=== PATIENT | male | born 1990 | race Caucasian/White ===

== ENCOUNTER 2017-06-24 19:57 | Emergency (ER) | payer OTHER, SELFPAY ==
[2017-06-24 19:58] VITALS: BP 113/89; PULSE 113; RESP 18; TEMP 36.8; O2SAT 98; BMI 26.4
--- NOTE | 2017-06-24 20:20 | RAD_ITS ---
STUDY: X-RAY - LEFT ANKLE REASON FOR EXAM: Male, 27 years old. Ankle injury. TECHNIQUE: 3 view(s) of the ankle. COMPARISON: None. FINDINGS: Normal visualized distal tibia and fibula. Normal medial and lateral malleoli. Normal tibiotalar articulation and ankle mortise. Normal visualized talus and calcaneus. The visualized subtalar, talonavicular, calcaneocuboid and tarsal articulations are normal. Lateral soft tissue swelling is present with mild ankle edema. RAD/Ankle min 3 Views IMPRESSION: Lateral soft tissue swelling and mild ankle edema with no evidence of acute fracture. Electronically Signed: Shan Mora DO at 20:38 EST , Service support ,
--- NOTE | 2017-06-24 21:03 | ED.VISSUMM ---
- ER Visit Summary Date of Service: 06/24/17 Chief Complaint: Left ankle pain History of Present Illness: The patient is a 27 M with no primary care physician. He reports he was playing volleyball today and had a forced inversion injury of his left ankle. He has pain is 10 out of 10 with walking 1 out of 10 at rest. He denies any other injuries. Physical Examination: Vitals: Stable. Afebrile. Neck: No vertebral tenderness. Full ROM without difficulty. Cleared by NEXUS criteria. Back: No vertebral tenderness. General: A&O x 3. NAD. Cardiovascular exam: Regular rate and rhythm, no murmur, rub or gallop. Respiratory exam: Chest nontender. No crepitus. Clear to auscultation bilaterally. No wheezes or stridor. Abdominal exam: Soft, nontender, nondistended, normal bowel sounds. No pain in RUQ or LUQ specifically. No peritoneal signs. Extremity: Tenderness palpation over left lateral malleolus. There is soft tissue swelling present. No pain over the medial malleolus. No pain over the base the fifth metatarsal. No pain over the proximal fibula. He is neurovascular intact distal to this. Test Results: Left ankle x-ray is negative. Emergency Department Course and Treatment: Patient is treated with naproxen and placed on crutches. He is also placed in an Aircast. Treatment Plan: He will be discharged instructions to follow-up with Dr. Tyler in 1 week if not improving. Placed on naproxen at home. Disposition: To home in improved and stable condition. Impression: 1. Left ankle sprain. This note was generated with [employer] dictation software. It may contain incorrect words, spelling, and punctuation that were not noted in review of the chart prior to signing ED Disposition - Plan for ED Patient: Disposition: Home or Assisted Living Chief Complaint: Lower Extremity Injury Instructions: ED Sprain Ankle W X Ray Prescriptions: Naproxen [Naprosyn] 500 mg PO BID PRN #20 tablet Referrals: Santiago Tyler DPM [STAFF PHYSICIAN] - 10-14 Days if not better
[2017-06-24] MEDS: Naproxen 250 MG Tablet 500 MG PO (21:24)
[2017-06-24 21:48] VITALS: BP 128/75; PULSE 71; RESP 18; O2SAT 96
== END 2017-06-24 21:49 | disposition home or self-care (01) ==
PROVIDERS: Emergency Provider Emergency Medicine
DX: S93.402A Sprain of unspecified ligament of left ankle, initial encounter (principal); X50.1XXA Overexertion from prolonged static or awkward postures, initial encounter; Y93.68 Activity, volleyball (beach) (court); Y92.9 Unspecified place or not applicable
CPT/HCPCS: 73610; 99283

== ENCOUNTER → 2017-07-12 08:29 | Outpatient (CLI) | payer OTHER, SELFPAY ==
--- NOTE | 2017-07-12 08:33 | RAD_ITS ---
STUDY: X-RAY - LEFT TIBIA AND FIBULA REASON FOR EXAM: Male, 27 years old. Foot injury 2 weeks ago. Pain. TECHNIQUE: 4 view(s) of the tibia and fibula were obtained. COMPARISON: None. FINDINGS: Normal visualized tibia. Normal visualized fibula. Incidentally noted is a nondisplaced fracture of the base of the fifth metatarsal. The soft tissue structures are unremarkable. RAD/Tibia & Fibula 2 Views IMPRESSION: Nondisplaced fifth metatarsal fracture. Electronically Signed: Naveen Barrow MD at 17:14 EDT , Service support ,
--- NOTE | 2017-07-12 08:33 | RAD_ITS ---
STUDY: X-RAY - LEFT FOOT CLINICAL: Male, 27 years old. Injury 2 weeks ago. Pain. TECHNIQUE: 3 view(s) of the foot. COMPARISON: None. FINDINGS: Normal talus, calcaneus, and tarsal bones. Normal visualized subtalar, talonavicular, calcaneocuboid, tarsal and tarsometatarsal articulations. There is a nondisplaced oblique fracture of the base of the fifth metatarsal. Normal metatarsophalangeal joint of the great toe. Normal tibial and fibular sesamoid bones. Normal interphalangeal joint of the great toe. Normal phalanges of the great toe. Normal second through fifth metatarsophalangeal joints. Normal interphalangeal joints and phalanges of the lesser toes. The soft tissue structures are unremarkable. RAD/Foot min 3 Views IMPRESSION: Base of fifth metatarsal fracture as described. Electronically Signed: Naveen Barrow MD at 17:13 EDT , Service support ,
== END ==
PROVIDERS: Visit Provider Orthopaedic Surgery
DX: M89.8X6 Other specified disorders of bone, lower leg (principal); M79.672 Pain in left foot
CPT/HCPCS: 73590; 73630

== ENCOUNTER → 2017-07-23 12:13 | Outpatient (CLI) | payer OTHER, SELFPAY ==
--- NOTE | 2017-07-23 12:16 | MRI_ITS ---
STUDY: MRI LEFT MIDFOOT REASON FOR EXAM: Left foot pain status post injury with fifth metatarsal fracture. TECHNIQUE: Standardized fat and water weighted pulse sequences were obtained in all 3 orthogonal planes. COMPARISON: Radiographs 07/12/2017. FINDINGS: Normal talonavicular articulation. Normal calcaneocuboid articulation. Normal navicular-cuneiform articulations. Normal intercuneiform articulations. There is a bone contusion of the distal cuboid (inversion recovery sagittal images 17-19). Normal first tarsometatarsal articulation. There is a mild sprain of Lisfranc ligament (T2 axial series 6 image 9; ankle inversion recovery axial series 8 image 11). Normal second and third tarsometatarsal articulations. Normal cuboid fourth and cuboid fifth tarsometatarsal articulation. There is a nondisplaced fracture of the fifth metatarsal base (T2 axial series 6 images 18, 19). Normal tibialis anterior tendon. Normal extensor hallucis longus tendon. Normal extensor digitorum longus tendons. Normal peroneus longus tendon and distal insertion. Normal peroneus brevis tendon and distal insertion. Normal intrinsic muscles of the mid and forefoot region. Normal extensor digitorum brevis muscle. There is edema in the dorsal lateral subcutis adipose space. MRI/Lower Ext/No Jt/w/o IMPRESSION: Nondisplaced fracture of the fifth metatarsal base. Mild sprain of Lisfranc ligament. Bone contusion of the distal cuboid. No demonstrated tendon injury. Electronically Signed: Bartolome Carrillo MD at 14:42 EDT Tel , Service support ,
--- NOTE | 2017-07-23 12:16 | MRI_ITS ---
STUDY: MRI LEFT ANKLE WITHOUT CONTRAST REASON FOR EXAM: Left foot and anterior left ankle pain status post injury. TECHNIQUE: Standardized fat and water weighted pulse sequences were obtained in all 3 orthogonal planes. COMPARISON: Radiographs 06/24/2017. FINDINGS: There is edema in the subcutis adipose space. Normal posterior tibialis tendon. Normal flexor digitorum longus tendon. Normal flexor hallucis longus tendon. Normal peroneus longus and brevis tendons. Normal tibialis anterior tendon. Normal extensor hallucis longus tendon. Normal extensor digitorum longus tendons. Normal Achilles tendon and teno-osseous insertion. Normal plantar fascia. Normal plantar calcaneal tubercles. Normal intrinsic muscles of the rearfoot. Normal distal tibiofibular syndesmotic ligamentous complex. There is a sprain of the anterior talofibular ligament (T2 axial image 23). Normal calcaneofibular and posterior talofibular ligaments. Normal subtalar ligaments and sinus tarsi. There is a sprain of the deltoid ligament (T2 coronal image 15). Normal plantar calcaneonavicular (spring) ligament. Normal tibiotalar articulation. Normal talar dome. Normal subtalar articulations. Normal talonavicular articulation. Normal calcaneocuboid articulation. Normal navicular-cuneiform articulations. There are bone contusions of the medial malleolus, medial body/neck of the talus and the sustentaculum luna (T2 coronal images 12-19). There is a bone contusion of the distal cuboid (inversion recovery sagittal images 13-15). There is a nondisplaced fracture of the fifth metatarsal base (inversion recovery series 8 images 19, 20). There is a small bone contusion of the lateral malleolus (T2 coronal image 12). MRI/Lower Ext Joint Only (Routine) IMPRESSION: Anterior talofibular ligament sprain. Deltoid ligament sprain. Bone contusions of the medial and lateral malleoli, talus, sustentaculum luna and cuboid. Fracture of the fifth metatarsal base. No demonstrated tendon injury. Electronically Signed: Bartolome Carrillo MD at 14:43 EDT Tel , Service support ,
== END ==
PROVIDERS: Visit Provider Orthopaedic Surgery
DX: S92.352A Displaced fracture of fifth metatarsal bone, left foot, initial encounter for closed fracture (principal); S86.219A Strain of muscle(s) and tendon(s) of anterior muscle group at lower leg level, unspecified leg, initial encounter; X58.XXXA Exposure to other specified factors, initial encounter
CPT/HCPCS: 73718; 73721

== ENCOUNTER 2017-11-28 18:30 | Outpatient (RCR) | payer OTHER, SELFPAY ==
--- NOTE | 2017-07-18 18:51 | HP.PTEVAL_ITS ---
Patient's Visit Information MAK LANDAVERDE is a 27 year old M referred to Physical Therapy by DO JOSUE Odonnell with a diagnosis of L ankle sprain and avulsion Fx. Date of Evaluation: 07/18/17 Physical Therapist: Waqas Swan, PT, - Visit Plan Frequency: 2x /Week Duration: 4-6 Weeks Plan: L ankle stretching and strengthening, balance and proprio, core, nustep, and HEP - Subjective Subjective: DOI: 06/24/17. Pt reports he was playing VB when he landed on his L ankle resulting in severe pain. Pt reports he had xrays which revealed a fracture to the 5th metatarsal and a sprain of the L ankle. Pt reports he is getting an MRI performed on his L LE next week in order to try and identify why he has such bad L LE pain. 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 No T or N at this time. 0/10 at rest, 2/10 pain at worst - Pain L foot/ankle Pain Intensity (Out of 10): 0 Pain Intensity Range: 2 - Objective Neuro: B LE sensation is WNL to light touch. B pat reflex= 2/3. Girth at malleouls line: R ankle 27 cm, L ankle 30 cm. ankle ROM: R ankle DF= 7, PF= 60 ; L ankle PF= 45, DF= -7 degrees. Ankle MMT: R ankle 5/5, L ankle 2/5 and painful - Goals Goal 1:: Decrease L ankle pain x 50% to aid with IADL's Goal Time Frame: 4-6 Weeks Goal 2:: Increase L ankle strength x 1 grade to aid with stair negotiation Goal Time Frame: 4-6 Weeks Goal 3:: Increase L ankle DF and PF ROM x 10 degrees ea to aid with restoring normal gait pattern Goal Time Frame: 4-6 Weeks Goal 4:: I with HEP Goal Time Frame: 4-6 Weeks - Rehabilitation Potential Physical Therapy Diagnosis: L ankle pain, swelling and weakness secondary to L ankle sprain and avulsion Fx Rehabilitation Potential: Good - Anticipated Interventions Patient/Client Instruction: Educate patient on: Condition, Plan of Care For the Purpose of:: To improve self management Therapeutic Exercise to Include: Strength training, Endurance training, Balance training, Flexibilty training, Gait and locomotor training, Active ROM, Dynamic Lumbar Stabilization For the Purpose of:: To decrease pain, To increase ROM, To improve muscle performance and motor function Cryotherapy (ice pack, ice massage): Yes For the Purpose of:: To decrease pain Thank you for the opportunity to evaluate your patient. For Medicare and Medicare HMO plans, please review the plan of care and approve it. It will need to be FAXED BACK to us at [phone] for Medicare purposes. Please let me know if there are questions or concerns regarding this plan of care. Physician Signature: Date:
--- NOTE | 2018-01-07 15:15 | HP.PTDCSUM_ITS ---
HP - PT D/C Summary It has been my pleasure to treat MAK LANDAVERDE under orders from Brunilda Moon DO, for the diagnosis of L ankle sprain and avulsion Fx for a total of 20 visit(s). Discharge Date: Please see the following information for a summary of their discharge status. - Subjective Subjective: Pt reports no pain this date. Pt notes he is still limited with IADL 's secondary to lack of strength and ROM - Pain L foot/ankle Pain Intensity (Out of 10): 0 - Overall Improvement % Improvement: 75 - Objective Objective/Function: L ankle pain 0/10. L ankle ROM: DF= 5, PF= 45. L ankle MMT : Inv= 4-/5, Ever= 4+/5. DF and PF= 5/5. I with HEP - Goals Goal 1:: Decrease L ankle pain x 50% to aid with IADL's Goal Progress: Goal Met Goal 2:: Increase L ankle strength x 1 grade to aid with stair negotiation Goal Progress: Progressing Goal 3:: Increase L ankle DF and PF ROM x 10 degrees ea to aid with restoring normal gait pattern Goal 4:: I with HEP Goal Progress: Goal Met - Plan Plan: Attempt to get more visits approved to focus on ROM, strength, and functional agility - D/C Information If there are questions or concerns regarding this patient's physical therapy, please feel free to call me at [phone]. Thank you for the referral of this patient. Sincerely, Waqas Swan, PT,
== END 2017-11-28 19:00 | disposition home or self-care (01) ==
LOC: PT 18:30
PROVIDERS: Visit Provider Orthopaedic Surgery
DX: S92.352D Displaced fracture of fifth metatarsal bone, left foot, subsequent encounter for fracture with routine healing (principal); S93.492D Sprain of other ligament of left ankle, subsequent encounter
CPT/HCPCS: 97014; 97110; 97140; 97161; 97530; G0283